=== PATIENT | male | born 1940 | race Hispanic/Latino ===

== ENCOUNTER 2020-06-08 06:45 | Emergency (ER) | payer MEDICARE ==
[~2020-06-08 06:45] MED LIST: EPINEPHrine 1 MG/10 ML SYRINGE ONE; SODIUM BICARB 8.4% 50 MEQ/50 ML SYRINGE IV ONE
--- NOTE | 2020-06-08 06:57 | Emergency Department Report ---
HPI - General Time Seen by Provider: 06/08/20 06:55 - HPI HPI: This is a 79-year-old male who presents to the emergency department via EMS from his [facility] in cardiac arrest. Apparently the patient's last known well time was about 20 to 25 minutes prior to arrival in our emergency department. Upon EMS they began ACLS protocol. The patient was intubated with a 7.0 endotracheal tube and began receiving bag valve ventilation. He was receiving chest compressions. A right lower extremity intraosseous line was placed and the patient received 2 rounds of epinephrine. The patient was in asystole during his entire EMS course and upon arrival to our emergency department. He was brought to bed #41 where we continued ACLS protocol. An Accu-Chek was done and the patient had a blood sugar of 155. The report is that the patient had a past medical history of COPD, diabetes, hypertension, hyperlipidemia, and some recent orthopedic injuries. The patient does not appear to have ever been in our emergency department previously. ED Review of Systems ROS: Stated complaint: CARDIAC ARREST Other details as noted in HPI Comment: Unobtainable due to pts medical conditions Physical Exam - Physical Exam Physical Exam: GENERAL: Patient is ill-appearing and unresponsive. HENT: Normocephalic. Atraumatic. EYES: Pupils are fixed and dilated. NECK: Supple. Trachea appears midline. CHEST/LUNGS: There are no spontaneous respirations. HEART/CARDIOVASCULAR: There are no spontaneous heart sounds. ABDOMEN: Abdomen is soft. There is no abdominal distention. SKIN: Skin is cool but dry. NEURO: Unresponsive. Does not withdraw to painful stimuli. Does not follow any commands. MUSCULOSKELETAL: There is no obvious deformity. There is a cast on the distal left upper extremity. No palpable femoral or radial pulses. ED Medical Decision Making - Medical Decision Making This patient [facility]. The patient has been pulseless and in asystole since EMS arrival to the jail facility to start ACLS protocol. He was intubated with a 7.0 endotracheal tube and began receiving bag valve ventilations. He was getting chest compressions. The patient received 2 rounds of epinephrine through a right lower extremity intraosseous line. He presents to the emergency department still pulseless and in asystole and was brought to room #41, where we continued ACLS protocol. The patient had an Accu-Chek upon arrival that showed a blood sugar of 155. Overall the patient had 3 further rounds of ACLS including 3 doses of epinephrine, 1 of sodium bicarbonate, continued chest compressions and bag valve ventilation thr ough the endotracheal tube. The patient remained in asystole and there was no ROSC. By this time, the patient was pulseless for close to 25 to 30 minutes. There are no spontaneous heart or breath sounds. The pupils are fixed and dilated. Time of called at 6:52 AM. Critical Care Time: Yes Critical care time in (mins) excluding proc time.: 15 Critical care attestation.: If time is entered above; I have spent that time in minutes in the direct care of this critically ill patient, excluding procedure time. Critical care time was spent on this patient in doing his initial assessment and supervision of ACLS protocol through pronouncement. Critical Care Time: 15 minutes ED Disposition Clinical Impression: Cardiac arrest Acute respiratory failure Qualifiers: Respiratory failure complication: unspecified whether with hypoxia or hypercapnia Qualified Code(s): J96.00 - Acute respiratory failure, unspecified whether with hypoxia or hypercapnia Disposition: DC-20 Is pt being admited?: No Time of Disposition: 07:28
== END 2020-06-08 07:00 ==
LOC: ED 06:45
DX: I46.9 Cardiac arrest, cause unspecified (principal)
CPT/HCPCS: 92950; 99285; J0171